=== PATIENT | female | born 1975 | race Caucasian/White ===

== ENCOUNTER → 2017-11-02 11:37 | Outpatient (CLI) | payer MEDICARE, MEDICAID, SELFPAY ==
[2017-11-02 11:52] LABS: Basophils # 0.1 K/mm3 (0-0.2); Basophils % 0.7 % (0.1-2.0); Eosinophils # 0.1 K/mm3 (0.0-0.4); Eosinophils % 1.7 % (0.1-12.0); Hemoglobin 14.7 g/dL (12.2-16.2); Lymphocytes % 27.1 K/mm3 (10-50); Mean Corpuscular HGB Conc 33.4 g/dL (31.8-35.4); Mean Corpuscular Hemoglobin 30.7 pg (27.0-31.2); Mean Corpuscular Volume 91.9 fl (81-99); Mean Platelet Volume 7.2 fl (7.4-10.4); Monocytes # 0.5 K/mm3 (0.1-1.0); Monocytes % 6.4 % (1.7-9.3); Neutrophils # 4.7 K/mm3 (1.8-7.8); Platelet Count 397 K/mm3 (142-424); Red Cell Distribution Width 12.5 % (11.5-17.5); White Blood Count 7.3 K/mm3 (4.8-10.8)
[2017-11-02 11:59] LABS: Anion Gap 13.2 mEq/L (5-15); Blood Urea Nitrogen 13 mg/dL (7-18); Carbon Dioxide 28 mmol/L (21.0-32.0); Chloride 101 mmol/L (98-107); Estimated Glomerular Filt Rate 69 ml/min (>60); GFR (African American) 83 ML/MIN (>60); Glucose 96 mg/dL (74-106); Potassium 4.2 mmoL/L (3.5-5.1); Sodium 138 mmol/L (136-145)
== END ==
PROVIDERS: Visit Provider Internal Medicine
DX: K52.9 Noninfective gastroenteritis and colitis, unspecified (principal); D72.829 Elevated white blood cell count, unspecified
CPT/HCPCS: 36415; 80048; 85025

== ENCOUNTER → 2018-01-03 10:19 | Outpatient (CLI) | payer MEDICARE, MEDICAID, SELFPAY ==
[2018-01-03 10:52] LABS: Troponin I < 0.02 ng/ml (0.00-0.06)
== END ==
PROVIDERS: Visit Provider Internal Medicine
DX: R07.9 Chest pain, unspecified (principal); I10 Essential (primary) hypertension
CPT/HCPCS: 36415; 84484; 93005

== ENCOUNTER → 2018-08-09 09:40 | Outpatient (CLI) | payer MEDICARE, MEDICAID, SELFPAY ==
--- NOTE | 2018-08-09 10:01 | XR_ITS ---
XR chest 2V HISTORY: ITS.REASON: CHEST PAIN,SOB ORDERING PHYSICIAN: Sathya Nielson PATIENT AGE: 42 years COMPARISON: None FINDINGS: The cardiomediastinal silhouette and pulmonary vascularity are within normal limits. The lungs are clear without infiltrates, suspicious nodules, or pleural effusions. No acute bony abnormalities. IMPRESSION: Negative chest, no acute finding
[2018-08-09 10:22] LABS: Troponin I < 0.02 ng/ml (0.00-0.06)
== END ==
PROVIDERS: Visit Provider Internal Medicine
DX: R07.9 Chest pain, unspecified (principal); R06.02 Shortness of breath
CPT/HCPCS: 36415; 71046; 84484; 93005

== ENCOUNTER → 2018-11-16 17:38 | Outpatient (CLI) | payer MEDICARE, MEDICAID, SELFPAY | PROVIDERS: Visit Provider Nurse Practitioner Obstetrics & Gynecology | DX: N39.0 Urinary tract infection, site not specified (principal) | CPT/HCPCS: 87086; 87088; 87186 ==

== ENCOUNTER → 2018-12-19 16:50 | Outpatient (CLI) | payer MEDICARE, MEDICAID, SELFPAY | PROVIDERS: Visit Provider Nurse Practitioner Obstetrics & Gynecology | DX: N39.0 Urinary tract infection, site not specified (principal) | CPT/HCPCS: 87086; 87088; 87186 ==

== ENCOUNTER → 2020-10-09 10:23 | Outpatient (CLI) | payer MEDICARE, MEDICAID, SELFPAY | PROVIDERS: PCP Family Medicine; Visit Provider Nurse Practitioner Family | DX: E78.5 Hyperlipidemia, unspecified (principal); F17.200 Nicotine dependence, unspecified, uncomplicated; I10 Essential (primary) hypertension; R00.2 Palpitations; R06.09 Other forms of dyspnea; R07.89 Other chest pain | CPT/HCPCS: 93270 ==

== ENCOUNTER → 2020-10-17 06:18 | Outpatient (CLI) | payer MEDICARE, MEDICAID, SELFPAY ==
--- NOTE | 2020-10-17 06:19 | CT_ITS ---
PROCEDURE: CT ANGIO CORONARY ARTERY CLINCAL INDICATION: chest pain palpitations Family hx heart disease COMPARISON: No exams were available for comparison TECHNIQUE: IV Contrast: 135 mL Isovue 370 Gated images obtained. Patient's heart rate was in the 60s therefore, no the metoprolol was given. Two runs were obtained with retrospective reformatting. FINDINGS: The the left main coronary artery and the right coronary artery originating from the aortic arch and normal location. No stenotic lesions are evident. The LAD and diagonal branches have an unremarkable appearance. 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 This is a small vessel in difficult to adequately analyze for any degree of stenosis. This is of questionable clinical significance. Correlation with nuclear cardiac stress test may be of further value. The RCA has an unremarkable appearance. There is cold dominant supply to the septum. The posterior lateral branch to the left ventricle is also a small vessel. Nonspecific mild thickening noted involving the distal esophagus. IMPRESSION: 1. No significant stenotic lesions evident. Normal coronary artery anatomy. 2. 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 Please correlate with cardiac nuclear stress test and clinical parameters for significance. Dictated by: Harjit Godfrey MD 10/18/2020 11:46 Harjit Godfrey MD in [place] 10/18/2020 11:46
[2020-10-17 06:44] VITALS: BMI 23.9
== END ==
PROVIDERS: PCP Family Medicine; Visit Provider Nurse Practitioner Family
DX: E78.5 Hyperlipidemia, unspecified (principal); F17.200 Nicotine dependence, unspecified, uncomplicated; I10 Essential (primary) hypertension; R06.09 Other forms of dyspnea; R07.89 Other chest pain
CPT/HCPCS: 75574; Q9967

== ENCOUNTER → 2020-10-23 10:43 | Outpatient (CLI) | payer MEDICARE, MEDICAID, SELFPAY ==
--- NOTE | 2020-10-23 10:44 | CA_ITS ---
APPROVED REPORT EXAM: Comprehensive 2D, Doppler, and color-flow Echocardiogram Microbiology Lab Manager: Aleshia Pollack, RCS, RVS Ht: 5 ft 4 in Wt: 157lbs BSA: 1.76 BP: 132/100 mmHg Indications: BRADLEY, Smoker, CP, HTN, Palpitations 2D Dimensions IVSd 0.64 cm F: 0.6-1.0 LVEF (Visual) 66.70 % PWd 1.00 cm F: 0.6 - 1.0 LA Volume 38.30 mL LVDd 5.17 cm F: 3.9 - 5.3 LA Volume Index 21.76 mL/m2 (M/F) 16-34 LVDs 3.25 cm F: 2.2 - 3.5 LVOT 1.85 cm (M/F) 1.5-2.5 M-Mode Dimensions LA Diam 3.74 cm (1.9-4.0) Ao Diam 2.93 cm (2.0-3.7) EPSs 0.19 cm TAPSE 2.17 (<1.7) LV Diastology E Decel Time 237.00 (160-240 msec) E/A Ratio 1.04 MED E' 8.00 (< 7 cm/sec) MED A' 12.90 cm/s E'/MED E' Ratio 7.66 (>14) LAT E' 12.40 (<10 cm/sec) LAT A' 9.60 cm/s E/LAT E' Ratio 4.94 (>14) Aortic Valve LVOT Max 98.00 (70-110 cm/s) LVOT VTI 20.30 cm AO Peak GR. 5.10 mmHg Mitral Valve MV A Velocity 59.00 (40-130 cm/s) E/A Ratio 1.04 MV Decel. Time 237.00 (160-240 ms) Pulmonary Valve PV Peak Velocity 58.00 (50-150 cm/s) Left Ventricle Left atrium is mildly enlarged, left ventricle is normal size, mild concentric left ventricular hypertrophy, visually estimated ejection fraction 55% with no regional wall motion abnormality, grade 1 diastolic dysfunction seen without tissue Doppler evidence of raise left atrial pressure. Right Ventricle Right atrium and right ventricle are normal size and contractility. Aortic Valve Aortic valve is minimally thickened and fibrosed, there is no aortic stenosis or aortic insufficiency. Mitral Valve Mitral valve is grossly normal, there is trace mitral regurgitation. Tricuspid Valve Tricuspid grossly normal, there is trace tricuspid regurgitation, tricuspid regurgitation jet velocity is inadequate for calculation of the right ventricular systolic pressure. Pulmonic Valve Pulmonic valve is poorly visualized. Great Vessels Aortic root is normal size. Pericardium No significant pericardial effusion noted. Conclusion 1. Mildly enlarged left atrium, normal left ventricular size, mild concentric left ventricular hypertrophy, visually estimated ejection fraction 55% with no regional wall motion abnormality, grade 1 diastolic dysfunction seen without tissue Doppler evidence of raise left atrial pressure. 2. Trace mitral and tricuspid regurgitation. 3. No significant pericardial effusion noted. Electronically signed by : Benjamín Mckeon, 10/24/2020 15:48:46
== END ==
PROVIDERS: PCP Family Medicine; Visit Provider Nurse Practitioner Family
DX: E78.5 Hyperlipidemia, unspecified (principal); F17.200 Nicotine dependence, unspecified, uncomplicated; I10 Essential (primary) hypertension; R06.00 Dyspnea, unspecified; R07.9 Chest pain, unspecified
CPT/HCPCS: 93306

== ENCOUNTER → 2021-01-07 11:58 | Outpatient (CLI) | payer MEDICARE, MEDICAID, SELFPAY ==
[2021-01-08 08:21] LABS: HSV 1 IgG, Type Spec 2.92 index (0.00-0.90); HSV 2 IgG, Type Spec 6.46 index (0.00-0.90)
[2021-01-08 09:46] LABS: HIV Screen 4th Generation wRfx Non Reactive (Non Reactive); Hep A Ab, IgM Negative (Negative); Hepatitis B Core Antibody IgM Negative (Negative); Hepatitis B Surface Antigen Negative (Negative); Hepatitis C Antibody <0.1 s/co ratio (0.0-0.9)
[2021-01-08 12:11] LABS: Rapid Plasma Reagin Ab Titer Non Reactive (NonRea<1:1)
== END ==
PROVIDERS: Visit Provider Nurse Practitioner Obstetrics & Gynecology
DX: Z72.51 High risk heterosexual behavior (principal); Z01.419 Encounter for gynecological examination (general) (routine) without abnormal findings; Z11.4 Encounter for screening for human immunodeficiency virus [HIV]
CPT/HCPCS: 80074; 86592; 86695; 86703; 86790; G0432

== ENCOUNTER → 2021-09-24 07:23 | Outpatient (CLI) | payer MEDICARE, MEDICAID, SELFPAY ==
--- NOTE | 2021-09-24 | CA_ITS ---
APPROVED REPORT Exam: Exercise Treadmill Technologist: Leda Skelton, Ht: 5 ft 3 in Wt: 148 lbs BSA: 1.70 m2 HR: 58 bpm BP: 127/71 mmHg Rhythm: NSR, normal Medical History Medical History: HTN, Hyperlipidemia Medications: Omeprazole,,,,, Aspirin,,,,, Propranolol,,,,, Diclofenac,,,,, Tizanidine,,,,, BuPROPION,,,,, Pregabalin,,,,, AtorvaASTATIN,,,,, Sertaline,,,,, OxYbutynin chloride,,,,, DuCusate,,,,, Tramterene,,,,, Cardiac Risk Factors: HTN, Hyperlipidemia, FHX of CAD, Smoking Stress Test Details Test: Amanda HR Resting HR: 73 bpm Max Heart Rate (APMHR): 175.650740 bpm Max HR Achieved: 162 bpm Target HR (85% APMHR): 148.551359 bpm % of APMHR: 92.57 Recovery HR: 124 bpm BP Resting BP: 128/71 mmHg Max BP: 188/90 mmHg Recovery BP: 188.0/90.0 mmHg ECG Recovery ECG: NSR, normal Clinical Exercise duration: 09:31 min Highest Stage Achieved: Exercise capacity: 10.1 METs Stress ECG Conclusion During amanda protocol pt walked total of 9:30. No CP noted. No arrhythmias noted. Normal ST response to exercise. Normal GXT. Myoview images reported separately. Test Summary . Standing . . . . . . . . . . Stop exercise at 09:31 . . . . . . Electronically signed by : Benjamín Mckeon MD 09/24/2021 12:39:53
--- NOTE | 2021-09-24 07:23 | NM_ITS ---
APPROVED REPORT Exam: Nuclear Stress Test Indication: Chest pain, SOB, HTN, High cholesterol, Tobacco use, Family history Patient Location: Outpatient Stress Tech: Leda MORENO Tech:Talia Garcia, ARRT, RT (R)(N) Ht: 5 ft 3 in Wt: 140 lbs Bra Size: 38DDD HR: 73 bpm BP: 128/71 mmHg BSA: 1.66 m2 BMI: 24.7 History: Chest pain, SOB, HTN, High cholesterol, Tobacco use, Family history Procedure: Patient exercised on José Miguel protocol 9:31 minutes and sec, resting heart rate 73 bpm, resting blood pressure 128/71 mmHg, with exercise maximum heart rate achived was 162 bpm which is 93 % of the maximum predicted heart rate and blood pressure was 188/90 mmHg. Test was stopped due to SOA. Patient denied any complaint of chest pain. Patient has good exercise capacity, achieved 10.1 METs of workload on treadmill, the blood pressure response to exercise was Adequate. Electrocardiogram Resting electrocardiogram shows sinus rhythm, with exercise there is less than 1.[address] segment depression noted from the baseline EKG. The EKG portion of the exercise Myoview is negative for ischemia. Cardiac Stress and Resting SPECT Images: Cardiac Stress and Resting SPECT images were obtained using technetium 99m Myoview 30.3 mCi stress and 10.71 mCi at rest. Gated SPECT for analysis of segmental wall motion and calculation of the ejection fraction also done. Cardiac stress and resting SPECT images show mild fixed defect in the anterior wall with normal contractility on the gated SPECT is likely secondary to soft tissue attenuation, no reversible ischemia seen. Computer derived ejection fraction 60% with no regional wall motion abnormality, right ventricle is normal size and contractility. Conclusion: 1. The EKG portion of the exercise Myoview is negative for ischemia, patient has good exercise capacity achieved 10.1 METs of workload on treadmill, the blood pressure response to exercise was adequate, there was no exercise-induced chest discomfort. 2. No scintigraphic evidence of reversible ischemia seen, computer derived ejection fraction is 60% with no regional wall motion abnormality, right ventricle is normal size and contractility. 3. Normal exercise Myoview study. Electronically signed by : Benjamín Mckeon MD 09/24/2021 17:38:38
--- NOTE | 2021-09-24 09:36 | HMH.ITSHM ---
Current Home Medications as stated by this patient Effie Janger or public service representative. []HCTZ TIZANIDINE SUCRALFATE SERTRALINE PROPRANOLOL PREGABALIN ASA OXYBUTYNIN OMEPRAZOLE DOCUSATE DICLOFENAC BUPROPION ATORVASTATIN
== END ==
PROVIDERS: PCP Family Medicine; Visit Provider Urology
DX: E78.2 Mixed hyperlipidemia (principal); F17.200 Nicotine dependence, unspecified, uncomplicated; I10 Essential (primary) hypertension; Q24.5 Malformation of coronary vessels; R00.2 Palpitations; R06.09 Other forms of dyspnea; R07.89 Other chest pain; R93.89 Abnormal findings on diagnostic imaging of other specified body structures
CPT/HCPCS: 78452; 93017; A9502

== ENCOUNTER → 2021-10-06 13:14 | Outpatient (CLI) | payer MEDICARE, MEDICAID, SELFPAY ==
--- NOTE | 2021-10-06 13:14 | US_ITS ---
FINAL REPORT CLINICAL HISTORY: Ovarian Cysts FINDINGS: Transvaginal sonographic images of the pelvis were obtained. The uterus is absent. The right ovary measures 3cm in length and left ovary measures 7 cm in length. Normal blood flow seen to the ovaries. There is a 2.6 cm cyst in the right ovary. There are 2 cysts in the left ovary measuring 4.6 cm and 3.8 cm. There is no evidence of free fluid. IMPRESSION: Absent uterus. Bilateral ovarian cysts as described. Reviewed, Interpreted and Dictated by Gaurav Piedra III, MD Transcribed by Meg Irvin Authenticated by Gaurav Piedra III, MD on 10/06/2021 04:25:08 PM [facility]
== END ==
PROVIDERS: PCP Family Medicine; Visit Provider Nurse Practitioner Obstetrics & Gynecology
DX: N83.209 Unspecified ovarian cyst, unspecified side (principal)
CPT/HCPCS: 76830

== ENCOUNTER → 2021-11-13 15:20 | Outpatient (CLI) | payer MEDICARE, MEDICAID, SELFPAY ==
--- NOTE | 2021-11-13 15:20 | US_ITS ---
FINAL REPORT CLINICAL HISTORY: following ovarian mass COMPARISON: October 06, 2021 FINDINGS: Transvaginal sonographic images of the pelvis were obtained. The uterus is absent. The right ovary measures 4.3 cm in length and left ovary measures 5.9 cm in length. Normal blood flow seen to the ovaries. There is a right ovarian cyst that previously measured 2.6 cm and today measures 4.0 x 3.4 cm which has increased significantly in size. There are 2 left ovarian cysts. The largest measures 3.9 x 1.6 cm and a secondary cyst measures 4.0 x 3.6 cm. There is no evidence of free fluid. IMPRESSION: Absent uterus. Interval progressive increase in size of bilateral ovarian cysts. While these findings may be physiologic, the persistence is of concern. Gynecologic evaluation is recommended. Reviewed, Interpreted and Dictated by Domo Enriquez MD Transcribed by Meg Irvin Authenticated by Domo Enriquez MD on 11/13/2021 04:41:36 PM [facility]
== END ==
PROVIDERS: PCP Family Medicine; Visit Provider Nurse Practitioner Obstetrics & Gynecology
DX: N83.8 Other noninflammatory disorders of ovary, fallopian tube and broad ligament (principal)
CPT/HCPCS: 76830

== ENCOUNTER → 2021-11-19 11:06 | Outpatient (CLI) | payer MEDICARE, MEDICAID, SELFPAY ==
[2021-11-19 12:57] LABS: Ferritin 47.2 ng/ml (6.24-137)
== END ==
PROVIDERS: PCP Family Medicine; Visit Provider Nurse Practitioner Family
DX: E83.10 Disorder of iron metabolism, unspecified (principal); G47.33 Obstructive sleep apnea (adult) (pediatric); G47.00 Insomnia, unspecified; R06.83 Snoring; R53.83 Other fatigue; G25.81 Restless legs syndrome
CPT/HCPCS: 36415; 82728; G0399

== ENCOUNTER 2021-11-27 09:15 | Emergency (ER) | payer MEDICARE, MEDICAID, SELFPAY ==
[2021-11-27] VITALS (9 sets, daily range): BP systolic 133–163; BP diastolic 58–87; PULSE 63–71; RESP 16–18; TEMP 36.6–37.1; O2SAT 95–98; BMI 28.3
--- NOTE | 2021-11-27 09:22 | PC.NURSE ---
JUAN Matthews at
--- NOTE | 2021-11-27 09:24 | PC.NURSE ---
patient ambulatory to restroom without complications
--- NOTE | 2021-11-27 09:27 | PC.NURSE ---
patient back from restroom; UA sent to lab
--- NOTE | 2021-11-27 09:30 | PC.NURSE ---
ED MD at
[2021-11-27 09:32] LABS: Microscopic, Urine URINE MICROSCOPIC (MICROSCOPIC)
--- NOTE | 2021-11-27 09:36 | HMH.EDABDPAI ---
ED Disposition Clinical Impression: Chronic back pain Qualifiers: Back pain location: low back pain Back pain laterality: left Sciatica presence: without sciatica Qualified Code(s): M54.50 - Low back pain, unspecified Abdominal pain Qualifiers: Abdominal location: generalized Qualified Code(s): R10.84 - Generalized abdominal pain Disposition: Home, Self-Care Condition on Discharge: Good Instructions: DI for Low Back Pain, DI for Acute Abdominal Pain Additional Instructions: follow up PCP, return for worse Prescriptions: Dicyclomine HCl [Bentyl 10mg capsule] 10 mg PO TID PRN #15 cap PRN Reason: Cramping Transmission Status: Received by [facility] #[id number] Referrals: Nancy Odonnell MD [Primary Care Provider] - - Critical Care Critical Care Time: No Attestation: On 11/27/21, the high probability of a clinically significant, sudden or life threatening deterioration of the following system(s) required my full and direct attention, intervention and personal management. The time I documented below is in addition to time spent performing reported procedures but includes the following listed in this critical care notation. Medical Decision Making - Medical Records Medical records reviewed: Yes: I reviewed the patient's medical records. - Alok Inquiry Pt receiving controlled substance: No Vital Signs: 11/27/21 09:17 11/27/21 09:38 11/27/21 10:00 Temperature 98.8 F Temperature Source Oral Pulse Rate 71 65 Pulse Rate [Radial] 66 Respiratory Rate 16 Blood Pressure 163/81 H 140/60 Blood Pressure [Right Arm] 148/58 H Blood Pressure Mean 99 96 Blood Pressure Mean [Right Arm] 88 Blood Pressure Source Blood Pressure Position Blood Pressure Position [Right Arm] Sitting 02 Sat by Pulse Oximetry 98 95 96 Oxygen Delivery Method Room Air Room Air Room Air 11/27/21 10:30 11/27/21 10:44 11/27/21 11:00 Temperature Temperature Source Pulse Rate 63 64 67 Pulse Rate [Radial] Respiratory Rate 18 18 Blood Pressure 133/61 133/61 159/69 H Blood Pressure [Right Arm] Blood Pressure Mean 88 99 Blood Pressure Mean [Right Arm] Blood Pressure Source Automatic Cuff Blood Pressure Position Sitting Blood Pressure Position [Right Arm] 02 Sat by Pulse Oximetry 97 96 97 Oxygen Delivery Method Room Air Room Air Room Air 11/27/21 11:30 11/27/21 12:00 11/27/21 12:26 Temperature 98 F Temperature Source Oral Pulse Rate 67 63 68 Pulse Rate [Radial] Respiratory Rate 18 16 Blood Pressure 150/66 H 141/76 H 146/87 H Blood Pressure [Right Arm] Blood Pressure Mean 94 101 Blood Pressure Mean [Right Arm] Blood Pressure Source Blood Pressure Position Sitting Blood Pressure Position [Right Arm] 02 Sat by Pulse Oximetry 98 97 Oxygen Delivery Method Room Air Room Air Room Air - Lab Data Lab Results 11/27/21 09:25: Urine Color Straw, Urine Appearance Clear, Urine pH 6.5, Ur Specific [place] <= 1.005, Urine Protein Negative, Urine Glucose (UA) Negative, Urine Ketones Negative, Urine Blood Negative, Urine Nitrate Negative, Urine Bilirubin Negative, Urine Urobilinogen 0.2, Ur Leukocyte Esterase Negative, Urine WBC Occasional, Ur Squamous Epith Cells Occasional 11/27/21 09:40: WBC 6.8, RBC 4.51, Hgb 13.7, Hct 41.4, MCV 91.9, MCH 30.3, MCHC 33.0, RDW 12.8, Plt Count 268, MPV 7.8, Neut % (Auto) 69.4, Lymph % (Auto) 21.6, [place] % (Auto) 7.1, Eos % (Auto) 1.3, Baso % (Auto) 0.7, Neut # (Auto) 4.7, Lymph # (Auto) 1.5, [place] # (Auto) 0.5, Eos # (Auto) 0.1, Baso # (Auto) 0.0 11/27/21 09:40: Sodium 139, Potassium 4.1, Chloride 104, Carbon Dioxide 29, Anion Gap 10.1, BUN 15, Creatinine 0.70, Estimated Creat Clear 116, Estimated GFR 90, Est GFR ( Amer) 109, Glucose 95, Calcium 9.7, Total Bilirubin 0.4, AST 32, ALT 34, Alkaline Phosphatase 90, Total Protein 7.2, Albumin 4.2, Globulin 3.0, Albumin/Globulin Ratio 1.4, Lipase 68 11/27/21 10:00: Lactate 0.6 L Result
--- NOTE | 2021-11-27 09:37 | XR_ITS ---
FINAL REPORT CLINICAL HISTORY: abd pain, recent egd, constipation COMPARISON: Prior chest x-ray dated August 09, 2018. FINDINGS: Chest: A single view of the chest demonstrates no acute cardiopulmonary process. Abdomen: Flat and upright views of the abdomen demonstrate a nonobstructive bowel gas pattern. There is no free air. There is a moderate amount of stool throughout the colon. Surgical clips are seen in the mid pelvis. IMPRESSION: Moderate amount of retained stool. Reviewed, Interpreted and Dictated by Domo Enriquez MD Transcribed by Jose Rafael Lo Authenticated by Domo Enriquez MD on 11/27/2021 10:56:37 AM [facility]
--- NOTE | 2021-11-27 09:44 | PC.NURSE ---
pt to radiology
--- NOTE | 2021-11-27 09:48 | PC.NURSE ---
cbc results will be delayed r/t our analyzer is down and specimens are being transported to [facility] for analysis. AZEB CAMARENA is aware.
[2021-11-27 09:49] LABS: Appearance,Urine CLEAR (Clear); Bilirubin,Urine Negative (Negative); Blood, Urine Negative (Negative); Color,Urine STRAW (Yellow); Glucose,Urine (UA) Negative (Negative); Ketones,Urine Negative (Negative); Leukocyte Esterase,Urine Negative (Negative); Nitrate,Urine Negative (Negative); PH,Urine 6.5 (5.0-8.5); Protein,Urine Negative (Negative); Specific Gravity, Urine <= 1.005 (1.005-1.030); Urobilinogen,Urine 0.2 EU/dl (0.2)
[2021-11-27 09:50] LABS: Chloride 104 mmol/L (98-107); Potassium 4.1 mmoL/L (3.5-5.1); Sodium 139 mmol/L (136-145)
[2021-11-27 09:52] LABS: Blood Urea Nitrogen 15 mg/dl (7-17); Creatinine Clearance Estimated 116 mL/min (50-200); Estimated Glomerular Filt Rate 90 ml/min (>60); GFR (African American) 109 ML/MIN (>60)
[2021-11-27 09:53] LABS: Alanine Aminotransferase 34 U/L (12-78); Albumin Level 4.2 g/dl (3.5-5.0); Albumin/Globulin Ratio 1.4 (1.1-1.8); Alkaline Phosphatase 90 U/L (38-126); Anion Gap 10.1 mEq/L (5-15); Aspartate Amino Transferase 32 U/L (14-36); Bilirubin,Total 0.4 mg/dl (0.2-1.3); Calcium 9.7 mg/dl (8.4-10.2); Carbon Dioxide 29 mmol/L (22.0-30.0); Glucose 95 mg/dl (74-100); Lipase 68 U/L (23-300); Total Protein,Serum 7.2 g/dl (6.3-8.2)
[2021-11-27 10:06] LABS: Squamous Epithelial Cell,Urine Occasional #/hpf (0-5); WBC,Urine Occasional #/hpf (0-3)
[2021-11-27 10:18] LABS: Lactic Acid 0.6 mmol/L (0.7-2.1)
--- NOTE | 2021-11-27 10:36 | CT_ITS ---
FINAL REPORT TECHNIQUE: After the administration of intravenous contrast, axial images were obtained through the abdomen and pelvis by computed tomography. The study was performed with techniques to keep radiation dose as low as reasonably achievable, (ALARA). Individual dose reduction techniques using automated exposure control or adjustment of mA and/or kV according to the patient's size were employed. CLINICAL HISTORY: llq abd pain, LEFT FLANK PAIN, NAUSEA FINDINGS: Abdomen: The lung bases are clear. The liver parenchyma is homogeneous. The gallbladder is present. The spleen, pancreas, adrenals and kidneys appear unremarkable. The aorta is normal in caliber. There is no free fluid or adenopathy. Pelvis: The appendix is normal. The urinary bladder is unremarkable. There are cysts in the bilateral adnexa measuring 4.0 cm on the right and 3.5 cm on the left. There is no free fluid or adenopathy. IMPRESSION: No acute intra-abdominal process. Bilateral adnexal cysts. Reviewed, Interpreted and Dictated by Domo Enriquez MD Transcribed by Jose Rafael Lo Authenticated by Domo Enriquez MD on 11/27/2021 12:01:44 PM [facility]
--- NOTE | 2021-11-27 10:38 | PC.NURSE ---
patient ambulatory to and from restroom without complications
--- NOTE | 2021-11-27 10:48 | PC.NURSE ---
pt to CT
--- NOTE | 2021-11-27 10:48 | PC.NURSE ---
patient to CT with radiological metallurgist; ambulatory without complications
[2021-11-27 10:52] LABS: Basophils % 0.7 % (0.1-2.0); Eosinophils # 0.1 K/mm3 (0.0-0.4); Eosinophils % 1.3 % (0.1-12.0); Hematocrit 41.4 % (37.0-47.0); Hemoglobin 13.7 g/dL (12.2-16.2); Lymphocytes # 1.5 K/mm3 (0.7-4.5); Lymphocytes % 21.6 % (10-50); Mean Corpuscular Hemoglobin 30.3 pg (27.0-31.2); Mean Corpuscular Volume 91.9 fl (81-99); Mean Platelet Volume 7.8 fl (7.4-10.4); Monocytes # 0.5 K/mm3 (0.1-1.0); Monocytes % 7.1 % (1.7-9.3); Neutrophils # 4.7 K/mm3 (1.8-7.8); Neutrophils % 69.4 % (37.0-80.0); Platelet Count 268 K/mm3 (142-424); Red Blood Count 4.51 M/mm3 (4.20-5.40); Red Cell Distribution Width 12.8 % (11.5-17.5); White Blood Count 6.8 K/mm3 (4.8-10.8)
--- NOTE | 2021-11-27 11:04 | PC.NURSE ---
spoke with medhat in lab, states cbc analyzer is back up, states pt specimen is on analyzer now.
--- NOTE | 2021-11-27 11:36 | PC.NURSE ---
pt ambulated to restroom independently at this time.
== END 2021-11-27 12:27 | disposition home or self-care (01) ==
PROVIDERS: Emergency Provider Emergency Medicine; PCP Family Medicine
DX: M54.50 Low back pain, unspecified (principal); R10.84 Generalized abdominal pain; R07.9 Chest pain, unspecified; R94.31 Abnormal electrocardiogram [ECG] [EKG]; R00.2 Palpitations; I10 Essential (primary) hypertension; I25.119 Atherosclerotic heart disease of native coronary artery with unspecified angina pectoris; K21.9 Gastro-esophageal reflux disease without esophagitis; E78.5 Hyperlipidemia, unspecified; F17.210 Nicotine dependence, cigarettes, uncomplicated; Z79.899 Other long term (current) drug therapy; Z88.5 Allergy status to narcotic agent; Z88.6 Allergy status to analgesic agent; Z82.49 Family history of ischemic heart disease and other diseases of the circulatory system
CPT/HCPCS: 74021; 74177; 80053; 81001; 83605; 83690; 85025; 99285; Q9967

== ENCOUNTER 2021-12-08 12:23 | Emergency (ER) | payer MEDICARE, MEDICAID, SELFPAY ==
[2021-12-08 12:24] VITALS: BP 144/47; PULSE 85; RESP 18; TEMP 37.1; O2SAT 95; BMI 26.5
[2021-12-08 12:30] VITALS: BP 143/79; PULSE 92; RESP 19; TEMP 36.7; O2SAT 96; BMI 26.5
--- NOTE | 2021-12-08 13:50 | HMH.EDFALL ---
ED Disposition Clinical Impression: Multiple contusions Disposition: Home, Self-Care Condition on Discharge: Fair Additional Instructions: Follow-up with your primary care doctor in about 2 to 3 days if you do not feel any better. Return to the emergency department if you feel worse in any way. You may take [id number] Tylenol and/or ibuprofen as needed for your pain. Referrals: Nancy Odonnell MD [Primary Care Provider] - - Critical Care Critical Care Time: No Attestation: On 12/08/21, the high probability of a clinically significant, sudden or life threatening deterioration of the following system(s) required my full and direct attention, intervention and personal management. The time I documented below is in addition to time spent performing reported procedures but includes the following listed in this critical care notation. Medical Decision Making - Alok Inquiry Pt receiving controlled substance: No Vital Signs: 12/08/21 12:24 12/08/21 12:30 Temperature 98.7 F 98.0 F Temperature Source Oral Oral Pulse Rate [Left Brachial] 85 92 H Respiratory Rate 18 19 Blood Pressure [Left Arm] 144/47 H 143/79 H Blood Pressure Mean [Left Arm] 79 100 Blood Pressure Source [Left Arm] Automatic Cuff Automatic Cuff Blood Pressure Position [Left Arm] Sitting Sitting 02 Sat by Pulse Oximetry 95 96 Oxygen Delivery Method Room Air Room Air Orders (Tests/Meds): ED MEDICATIONS Discontinued Medications Generic Name Dose Route Start Last Admin Trade Name Randalq PRN Reason Stop Dose Admin Ketorolac Tromethamine 60 mg 12/08/21 15:08 12/08/21 15:12 Ketorolac 60mg/2ml Vial IM 12/08/21 15:09 60 mg ONCE ONE Administration Medical Decision Narrative: The patient has had numerous radiographs all of which have been interpreted by the radiologist. None of them show any acute bony abnormalities. I feel that the patient can be safely discharged home with instructions to follow-up with her primary care provider. Fall HPI - General Stated Complaint: ao 12/08 fall, h/a, neck pain, bilateral hip pain Time Seen by Provider: 12/08/21 13:50 Mode of Arrival: Ambulatory Source of Information: Patient Limitations: No Limitations Description of Symptoms (Recalled from ER Triage Doc. by RN): PATIENT STATES SHE FELL APPROX 5 FEET OFF OF A LADDER YESTERDAY WHILE CAULKING HER SHOWER. SHE STATES SHE DOESN'T REMEMBER MUCH ABOUT THE FALL, BUT DOES NOT THINK SHE BLACKED OUT. SHE STATES SHE HIT THE BACK OF HER HEAD ON THE TILE FLOOR AND HIT HER NECK AND RIGHT HAND WELL. SHE STATES SHE IS HAVING DIFFICULTY MOVING HER NECK AND IS HAVING THE WORSE HEADACHE OF HER LIFE. ALSO C/O UPPER AND LOWER BACK PAIN AND BILATERAL KNEE PAIN. - History of Present Illness HPI Narrative: The patient fell in the bathroom yesterday afternoon while caulking the bathroom. She was on the ladder. She fell backwards and hit her head and back against the tile. She also complains of some bilateral knee pain after the fall. She denies loss of consciousness. - Related Data Home Medications Medication Instructions Recorded Confirmed bupropion HCl 150 mg tablet,12 hr 150 mg PO DAILY #180 each 02/06/19 11/27/21 sustained-release docusate sodium 100 mg capsule 100 mg PO DAILY 02/06/19 11/27/21 oxybutynin chloride 15 mg 15 mg PO DAILY #90 tab 02/06/19 11/27/21 tablet,extended release 24 hr sucralfate 1 gram tablet 1 g PO QACHS 02/06/19 11/27/21 aspirin 81 mg tablet,delayed 81 mg PO DAILY 10/09/20 11/27/21 release omeprazole 40 mg capsule,delayed 40 mg PO DAILY cap 10/09/20 11/27/21 release sertraline 100 mg tablet 100 mg PO DAILY #90 tab 10/09/20 11/27/21 tizanidine 4 mg tablet 4 mg PO Q8H PRN tab 10/09/20 11/27/21 pregabalin 75 mg capsule 75 mg PO BID cap 08/05/21 11/27/21 atorvastatin 20 mg tablet 10 mg PO HS tab 10/22/21 11/27/21 cholecalciferol (vitamin D3) 50 50 mcg PO DAILY 10/22/21 11/27/21 mcg (2,000 unit) capsule
--- NOTE | 2021-12-08 13:52 | XR_ITS ---
FINAL REPORT CLINICAL HISTORY: injury, fell off ladder c/o pain below neck in t spine area FINDINGS: CERVICAL SPINE Five views were obtained. There is no acute fracture. There is no malalignment. The disc spaces are preserved. There is no soft tissue abnormality. IMPRESSION: No acute bony abnormality. Reviewed, Interpreted and Dictated by Gaurav Piedra III, MD Transcribed by Meg Irvin Authenticated by Gaurav Piedra III, MD on 12/08/2021 03:12:[address] [facility]
--- NOTE | 2021-12-08 13:52 | XR_ITS ---
FINAL REPORT CLINICAL HISTORY: injury, fell off ladder c/o lt. knee pain FINDINGS: LEFT KNEE Three views of the left knee reveal no evidence of fracture or dislocation. The bony alignment is normal. The joint spaces are preserved. There is no evidence of joint effusion. No localized soft tissue abnormality is seen. IMPRESSION: No acute abnormality identified. Reviewed, Interpreted and Dictated by Gaurav Piedra III, MD Transcribed by Meg Irvin Authenticated by Gaurav Piedra III, MD on 12/08/2021 03:12:07 PM [facility]
--- NOTE | 2021-12-08 13:53 | XR_ITS ---
FINAL REPORT TECHNIQUE: 2 views CLINICAL HISTORY: injury, fell off ladder c/o rt shouler and pain below neck in t spine area FINDINGS: THORACIC SPINE Three views were obtained. There is no acute fracture. There is no malalignment. There are mild degenerative changes with osteophytes. There is no soft tissue abnormality. IMPRESSION: Mild degenerative change with no acute bony abnormality. Reviewed, Interpreted and Dictated by Gaurav Piedra III, MD Transcribed by Meg Irvin Authenticated by Gaurav Piedra III, MD on 12/08/2021 03:12:[address] [facility]
--- NOTE | 2021-12-08 13:53 | CT_ITS ---
FINAL REPORT CLINICAL HISTORY: CHI, fell off ladder hitting back of head FINDINGS: CT HEAD/BRAIN W/O CONTRAST Axial images of the head were obtained without contrast. Coronal reformatted images were also obtained.This study was performed with techniques to keep radiation doses as low as reasonably achievable (ALARA). Individualized dose reduction techniques using automated exposure control or adjustment of mA and/or kV according to the patient's size were employed. There is no evidence of intracranial hemorrhage or mass. The ventricular size is within normal limits. There is no evidence of shift of the midline structures. No abnormal extra axial fluid collection is identified. No skull abnormality is seen on the bone window images. IMPRESSION: No acute intracranial abnormality. Reviewed, Interpreted and Dictated by Gaurav Piedra III, MD Transcribed by Meg Irvin Authenticated by Gaurav Piedra III, MD on 12/08/2021 03:12:[address] [facility]
--- NOTE | 2021-12-08 14:10 | PC.NURSE ---
Pt to rad
--- NOTE | 2021-12-08 14:34 | XR_ITS ---
FINAL REPORT CLINICAL HISTORY: injury FINDINGS: LEFT HIP Two views of the left hip demonstrate no acute fracture or dislocation. The joint spaces appear normal. The visualized bony structures are well aligned. No soft tissue abnormality is seen. There are postoperative changes in the pelvis. IMPRESSION: No acute bony abnormality. Reviewed, Interpreted and Dictated by Gaurav Piedra III, MD Transcribed by Meg Irvin Authenticated by Gaurav Piedra III, MD on 12/08/2021 04:36:44 PM [facility]
--- NOTE | 2021-12-08 14:34 | XR_ITS ---
FINAL REPORT CLINICAL HISTORY: injury FINDINGS: RIGHT SHOULDER Three views demonstrate no acute fracture or dislocation. The joint spaces appear normal. The visualized bony structures are well aligned. No soft tissue abnormality is seen. IMPRESSION: No acute process. Reviewed, Interpreted and Dictated by Gaurav Piedra III, MD Transcribed by Meg Irvin Authenticated by Garuav Piedra III, MD on 12/08/2021 04:36:46 PM [facility]
--- NOTE | 2021-12-08 14:49 | PC.NURSE ---
Pt returned from rad
--- NOTE | 2021-12-08 15:51 | PC.NURSE ---
Updated pt we were waiting on final 2 reads. No new needs at this time
--- NOTE | 2021-12-08 16:23 | PC.NURSE ---
Called rad about x-ray reads, advised they would check on the reads
--- NOTE | 2021-12-08 16:45 | PC.NURSE ---
MD at bedside discussing results
[2021-12-08 16:55] VITALS: BP 141/68; PULSE 90; RESP 18; TEMP 37; O2SAT 97
== END 2021-12-08 16:55 | disposition home or self-care (01) ==
PROVIDERS: Emergency Provider Emergency Medicine; PCP Family Medicine
DX: S80.02XA Contusion of left knee, initial encounter (principal); S70.02XA Contusion of left hip, initial encounter; S40.012A Contusion of left shoulder, initial encounter; S20.229A Contusion of unspecified back wall of thorax, initial encounter; S00.93XA Contusion of unspecified part of head, initial encounter; W11.XXXA Fall on and from ladder, initial encounter; Y92.012 Bathroom of single-family (private) house as the place of occurrence of the external cause
CPT/HCPCS: 36415; 70450; 72040; 72070; 73030; 73502; 73562; 80048; 85025; 96372; 99284; C9803; U0003; U0005

== ENCOUNTER → 2021-12-08 13:33 | Outpatient (CLI) | payer MEDICARE, MEDICAID, SELFPAY ==
[2021-12-08 18:07] LABS: Basophils # 0.1 K/mm3 (0-0.2); Eosinophils # 0.1 K/mm3 (0.0-0.4); Eosinophils % 1.3 % (0.1-12.0); Hematocrit 43.1 % (37.0-47.0); Hemoglobin 14.6 g/dL (12.2-16.2); Lymphocytes # 1.5 K/mm3 (0.7-4.5); Lymphocytes % 21.3 % (10-50); Mean Corpuscular HGB Conc 33.8 g/dL (31.8-35.4); Mean Corpuscular Hemoglobin 31.3 pg (27.0-31.2); Mean Corpuscular Volume 92.4 fl (81-99); Mean Platelet Volume 8.4 fl (7.4-10.4); Monocytes # 0.4 K/mm3 (0.1-1.0); Monocytes % 5.1 % (1.7-9.3); Neutrophils # 4.8 K/mm3 (1.8-7.8); Neutrophils % 70.4 % (37.0-80.0); Platelet Count 323 K/mm3 (142-424); Red Blood Count 4.67 M/mm3 (4.20-5.40); White Blood Count 6.8 K/mm3 (4.8-10.8)
[2021-12-08 18:33] LABS: Anion Gap 12.1 mEq/L (5-15); Blood Urea Nitrogen 10 mg/dl (7-17); Calcium 9.9 mg/dl (8.4-10.2); Carbon Dioxide 32 mmol/L (22.0-30.0); Chloride 98 mmol/L (98-107); Estimated Glomerular Filt Rate 78 ml/min (>60); GFR (African American) 94 ML/MIN (>60); Glucose 91 mg/dl (74-100); Potassium 4.1 mmoL/L (3.5-5.1); Sodium 138 mmol/L (136-145)
== END ==
PROVIDERS: Visit Provider Nurse Practitioner Obstetrics & Gynecology
DX: R10.2 Pelvic and perineal pain (principal); G89.29 Other chronic pain; R10.32 Left lower quadrant pain
CPT/HCPCS: 36415; 80048; 85025; C9803; U0003; U0005

== ENCOUNTER 2021-12-11 06:06 | Day surgery (SDC) | payer MEDICARE, MEDICAID, SELFPAY ==
[2021-12-11] VITALS (13 sets, daily range): BP systolic 119–166; BP diastolic 64–89; PULSE 74–87; RESP 16–19; TEMP 36.3–43; O2SAT 94–99; BMI 26.5
[2021-12-11 06:23] LABS: Urine Pregnancy, HCG Qual. Negative (Negative)
--- NOTE | 2021-12-11 06:23 | ECG_ITS ---
APPROVED REPORT Exam: Resting ECG HR:73 bpm ECG Measurements Heart Rate 73 AXES AL 185 P 58 QRSd 79 QRS 38 QT 386 T 57 QTc 412 Conclusion SINUS RHYTHM NORMAL ECG UNCONFIRMED REPORT Electronically signed by : Brendon Bailon MD 12/11/2021 21:09:11
--- NOTE | 2021-12-11 09:14 | HMH.OPNOTE ---
Date of procedure: 12/11/21 Pre-op Diagnosis:: Pelvic pain, ovarian cyst, previous hysterectomy and bilateral salpingectomy Post-op Diagnosis:: Bilateral ovarian cysts, extensive pelvic peritoneal adhesions Procedure performed:: Laparoscopic bilateral oophorectomy, extensive lysis of adhesions Surgeon:: Micky Bowles MD REFERRAL CLERK:: Azeem Narayan Anesthesia: GETA Estimated blood loss (mL): 250 Clinical Note:: She is a 46-year-old lady who has had a previous hysterectomy and bilateral salpingectomy. She complains of pelvic pain. An ultrasound showed a 4 cm left ovarian cyst as well as 2 small ovarian cyst on the right ovary. States she continued to have pain we elected to perform a bilateral oophorectomy. She did that she would be menopausal as soon as she removed her ovaries. Operative findings:: Initially when we went in we could see the right ovary. There were some adhesions of epiploica all along the deep pelvis close to the bladder flap. There were adhesions of the sigmoid colon to the left pelvic sidewall completely hiding the left ovary. These were thick and extensive. The upper abdomen appeared normal. The rest the pelvis appeared normal. Operative note:: She was taken the operating room where general anesthesia was found be adequate. She is prepped draped normal sterile fashion in the semilithotomy position. A sponge forcep was placed in vagina. I injected 10 cc of 0.5% ropivacaine around the umbilicus and made a small incision within the umbilicus. I inserted a Veress needle into the abdominal cavity and then insufflated the abdominal cavity with carbon dioxide gas to pressure of 20 mmHg. I then inserted the 11 mm trocar with the camera under direct vision. I injected through and through the pubic hairline, made a small incision and then inserted a 5 mm trocar under direct vision. I then injected through and through in the left lower quadrant lateral to the inferior epigastric arteries. I made a small incision and inserted a second 5 mm trocar here under direct vision. The adhesions at the deep pelvis overlying the bladder were taken down with harmonic scalpel. I was then able to see the right ovary and using harmonic scalpel and both sharp and blunt dissection I was able to free up the right ovary on its infundibulopelvic ligament. There was a 2 cm cyst on the right ovary with some clear fluid. I placed 2 Endoloops on the right infundibulopelvic ligament and then cut away the ovary from the infundibulopelvic ligament. It was placed in the pelvis for retrieval later. I then turned my attention to the left side. I freed up some more of the adhesions along the deep pelvis where the sigmoid colon epiploica was attached to the bladder flap. I used both blunt and sharp dissection here. Then using harmonic scalpel and especially blunt dissection I was able to free up the sigmoid epiploica that was overlying the left ovary. In so doing I can see that there was a 4 cm left ovarian cyst there. It took me about an hour to completely free up all the adhesions around the left ovary. The left ovary was also adherent to the deep pelvis and I could see that it was close to the ureter. I was extremely careful as I was dissecting and was away from the ureter at all times. After completely freeing up the left ovary on its infundibulopelvic ligament I then placed 2 Endoloops and then cut away the ovary from the infundibulopelvic ligament. It was also placed in the pelvis for retrieval. I then placed a 5 mm camera through the suprapubic port and an Endo Catch bag in the 11 mm trocar port. I put the ovaries in the bag and remove them through the 11 mm port. I then changed back to the 11 mm camera. The pelvis was then rinsed extremely well with saline and there were a couple of areas of bleeding from the epiploica and hemoclips were used here for excellent hemostasis. I then placed Suzie all around the left side of the pelvis. It was hemo
--- NOTE | 2021-12-11 09:25 | HMH.ANESI ---
[facility] Anesthesia Record Part I Intake, IV Amount: 200 Estimated blood loss (mL): 250 Urine output (mL): 0 Blood Pressure: 166/86 SaO2: 97 Pulse Rate: 86 Respiratory Rate: 19 Temperature: 97.5 F Patient is:: Drowsy, Oral/Nasal airway Stable to PACU at:: 09:22
--- NOTE | 2021-12-11 15:01 | P.PN_ITS ---
[facility] Anesthesia Checklist - Patient Identification Patient Identification: Arm Band - Structural Data Admitted From: Home Planned Operative Procedure/s: Laparoscopic Bilateral Oopherectomy Consent for Planned Operative Procedure(s) Verified: Yes Verified Documents: Surgical Consent, History and Physical - NPO Status Verified Time NPO: 00:00 - Additional verifications Anesthesia Reactions: No Hx Blood Transfusions: No Blood Transfusion Reaction: No - Airway Assessment C-Spine Mobility Assessed: Yes (mp2) TMJ Mobility Assessed: Yes Dentition: Good Dentition - Neurological Assessment Level of Consciousness: Awake, Alert - Anesthesia Plan Anesthesia Risk discussed: Yes Anesthesia Plan: Verified ASA Class: II Anesthesia Type: General [facility] History I have reviewed the patient's past medical history: Yes Medical History: Reports:: Gastroesophageal Reflux Disease(GERD), Hyperlipidemia, Hypertension, Palpitations Denies:: Cancer, Diabetes Mellitus Type 1, Diabetes Mellitus Type 2, Internal Pacemaker, MRSA, Seizures *Have you ever received a pneumonia vaccine?: No *Have you received a flu vaccine this season?: No Other Medical History: Reports: Other. Denies: Blood Transfusion Reaction Anesthesia experience/problems:: nac Laterality Cases: Left: Arthroscopy Shoulder Other Surgeries: Yes: Colonoscopy, Dilation and Curettage, EGD, Hysterectomy- Total, Hysterectomy-Partial, Tubal Ligation, Other. 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
--- NOTE | 2021-12-11 15:02 | HMH.ANESII ---
[facility] Anesthesia Record Part II Discharge Time: 10:03 Destination: Surgical Day Care (OP Surgery) PACU nurse assessment reviewed?: Yes Patient Condition:: Good Anesthesia Complications:: None Swallowing reflex intact?: Yes Cyanosis?: No Blood Pressure: 132/75 Pulse Rate: 85 Temperature: 97.3 F Mental Status: Alert & Oriented Pain level:: 2 Nausea and/or vomitting:: None Intake, IV Amount: 0
--- NOTE | 2021-12-12 08:31 | SUR.PREOP ---
Pt. called pre-op due to having what she states as a black line across her vision and some dust-like floaters in her eye . She called her eye doctor and they instructed to call surgery. Consulted with Juana Narayan CRNA and he states that nothing abnormal happened to her eyes during the case. Suggests she go to her eye doctor for further evaluation of her eye. Pt. informed of recommendations and states she will call back if she has anymore questions or concerns.
== END 2021-12-11 10:45 | disposition home or self-care (01) ==
LOC: OR 06:07
PROVIDERS: PCP Family Medicine; Visit Provider Nurse Practitioner Obstetrics & Gynecology
PROC: 0UT24ZZ Resection of Bilateral Ovaries, Percutaneous Endoscopic Approach (ICD-10-PCS; CPT 58661; principal; 2021-12-11 07:30)
DX: N83.201 Unspecified ovarian cyst, right side (principal); N83.202 Unspecified ovarian cyst, left side; K66.0 Peritoneal adhesions (postprocedural) (postinfection); G89.29 Other chronic pain; K21.9 Gastro-esophageal reflux disease without esophagitis; E78.5 Hyperlipidemia, unspecified; I10 Essential (primary) hypertension; R00.2 Palpitations; Z90.710 Acquired absence of both cervix and uterus; Z72.0 Tobacco use; Z80.9 Family history of malignant neoplasm, unspecified; Z83.3 Family history of diabetes mellitus; Z82.3 Family history of stroke
CPT/HCPCS: 58661; 81025; 88305; 93005; 96374; J2405; J2710